=== PATIENT | male | born 2000 | race American Indian/Alaskan Native ===

== ENCOUNTER 2020-09-09 14:54 | Emergency (ER) | payer OTHER ==
--- NOTE | 2020-09-09 19:09 | Emergency Department Report ---
Chief Complaint: Urogenital-Male Stated Complaint: GROIN PAIN - HPI History of Present Illness: 20-year-old -Cong[place] male presents to the emergency room for penile discharge x2 months. Patient comes in wanting to get checked for STD. Patient denies any nausea vomiting no chest pain no dysuria no testicular pain no abdominal pain. - Exam Physical Exam: Patient is alert and oriented x3 no acute distress nontoxic in appearance No respiratory distress and Ambulatory without difficulties MSE screening note: Focused history and physical exam performed. Due to findings the following was ordered: 20-year-old -Congol[place] male presents to the emergency room for penile discharge x2 months. Patient comes in wanting to get checked for STD. Patient denies any nausea vomiting no chest pain no dysuria no testicular pain no abdominal pain. Patient is referred to [facility]. ED Disposition for MSE Disposition: MED SCREENING EXAM-LEFT Is pt being admited?: No Does the pt Need Aspirin: No Condition: Stable Additional Instructions: Follow up at health department. Referrals: PRIMARY CARE, [Primary Care Provider] - 3-5 Days [facility] [Outside] - 3-5 Days [facility] [place][Note 3] [Outside] - 3-5 Days
== END 2020-09-09 21:04 | disposition left against medical advice (07) ==
LOC: ED 14:54

== ENCOUNTER 2021-12-26 09:07 | Emergency (ER) | payer SELFPAY ==
[2021-12-26] MEDS ORDERED: SULFAMETHOXAZOLE/TRIMETHOPRIM 800/160MG DS TAB PO ONE (11:52)
[2021-12-26] MEDS ORDERED: KETOROLAC 10 MG TAB PO ONE (11:52)
[2021-12-26] MEDS ORDERED: oxyCODONE /ACETAMINOPHEN 5-325MG TAB PO ONE (11:52)
--- NOTE | 2021-12-26 11:56 | Emergency Department Report ---
- General Chief complaint: Skin/Abscess/Foreign Body Stated complaint: CYST/RT SIDE BUTTOCK Time Seen by Provider: 12/26/21 11:39 Source: patient Mode of arrival: Ambulatory Limitations: No Limitations - History of Present Illness Initial comments: 21-year-old black male with no past medical history presents to the emergency department for evaluation of several day history of worsening pain and swelling to right buttocks. He states that he had a minimal amount of drainage from area when he attempted to squeeze it. He denies fever, abdominal pain, nausea, and vomiting. He states that pain is 8 out of 10 and persistent MD complaint: abscess/boil -: Gradual, days(s) (4-5) Location: buttocks (Right) Severity: severe Severity scale (0 -10): 8 Quality: burning, aching Consistency: constant Worsens with: palpation Associated symptoms: denies other symptoms Treatments Prior to Arrival: none - Related Data Previous Rx's Medication Instructions Recorded Last Taken Type Triamcinolone 0.5% [Kenalog 0.5% 1 applic TP TID #1 tube 01/28/19 Unknown Rx CREAM] Acetaminophen/Codeine [Tylenol 1 tab PO Q6H PRN #12 tab 12/26/21 Unknown Rx /Codeine # 3 tab] Naproxen [EC-Naprosyn] 500 mg PO BID #14 tab 12/26/21 Unknown Rx Sulfamethoxazole/Trimethoprim 1 each PO BID 7 Days #14 tab 12/26/21 Unknown Rx [Bactrim DS TAB] Allergies Allergy/AdvReac Type Severity Reaction Status Date / Time No Known Allergies Allergy Unverified 12/26/21 10:11 Abscess Boil HPI - HPI Chief Complaint: Skin/Abscess/Foreign Body Stated Complaint: CYST/RT SIDE BUTTOCK Time Seen by Provider: 12/26/21 11:39 Severity: Severe History: Yes Pain, Yes Purulent Drainage, No Fever, No Numbness, No Foreign Body, No Previous History, No Insect Bite Home Medications: Previous Rx's Medication Instructions Recorded Last Taken Type Triamcinolone 0.5% [Kenalog 0.5% 1 applic TP TID #1 tube 01/28/19 Unknown Rx CREAM] Acetaminophen/Codeine [Tylenol 1 tab PO Q6H PRN #12 tab 12/26/21 Unknown Rx /Codeine # 3 tab] Naproxen [EC-Naprosyn] 500 mg PO BID #14 tab 12/26/21 Unknown Rx Sulfamethoxazole/Trimethoprim 1 each PO BID 7 Days #14 tab 12/26/21 Unknown Rx [Bactrim DS TAB] Allergies/Adverse Reactions: Allergies Allergy/AdvReac Type Severity Reaction Status Date / Time No Known Allergies Allergy Unverified 12/26/21 10:11 ED Review of Systems ROS: Stated complaint: CYST/RT SIDE BUTTOCK Other details as noted in HPI ED Past Medical Hx - Past Medical History Previous Medical History?: No - Surgical History Past Surgical History?: No - Social History Smoking Status: Current Every Day Smoker Substance Use Type: Alcohol - Medications Home Medications: Home Medications Medication Instructions Recorded Confirmed Last Taken Type Triamcinolone 0.5% [Kenalog 0.5% 1 applic TP TID #1 tube 01/28/19 Unknown Rx CREAM] Acetaminophen/Codeine [Tylenol 1 tab PO Q6H PRN #12 tab 12/26/21 Unknown Rx /Codeine # 3 tab] Naproxen [EC-Naprosyn] 500 mg PO BID #14 tab 12/26/21 Unknown Rx Sulfamethoxazole/Trimethoprim 1 each PO BID 7 Days #14 tab 12/26/21 Unknown Rx [Bactrim DS TAB] ED Physical Exam - General Limitations: No Limitations General appearance: alert, in no apparent distress - Head Head exam: Present: atraumatic, normocephalic - Eye Eye exam: Present: normal appearance. Absent: conjunctival injection, periorbital swelling, periorbital tenderness - Neck Neck exam: Present: normal inspection. Absent: lymphadenopathy - Respiratory Respiratory exam: Absent: respiratory distress - Cardiovascular Cardiovascular Exam: Present: regular rate - GI/Abdominal GI/Abdominal exam: Absent: distended, tenderness - External exam: Present: erythema, swelling, other - Extremities Exam Extremities exam: Present: normal inspection - Back Exam Back exam: Present: normal inspection. Absent: CVA tenderness (R) - Neurological Exam Neurological exam: Present: alert, oriented X3, normal gait - Psychiatric Psychiatric exam: Present: normal affect, normal mood - Skin Skin exam: Present: warm, dry, normal color - Expanded Skin Exam Expanded 1 - Abscessed area 3 cm in diameter noted. No purulent drainage noted but area noted to be tender, firm, and mildly erythematous. ED Course Vital Signs 12/26/21 12/26/21 12/26/21 10:08 12:15 12:17 Temperature 98.5 F Pulse Rate 72 73 Respiratory 18 18 Rate Blood Pressure 124/64 131/68 [Left] O2 Sat by Pulse 99 99 99 Oximetry ED Medical Decision Making - Medical Decision Making 21-year-old black male with no past medical history presents to the emergency department for evaluation of several day history of worsening pain and swelling to right buttocks. He states that he had a minimal amount of drainage from area when he attempted to squeeze it. He denies fever, abdominal pain, nausea, and vomiting. He states that pain is 8 out of 10 and persistent Physical exam consistent with abscess to right buttocks. Patient be discharged home with Bactrim, naproxen, and Tylenol 3 to use as directed. He is advised to follow-up with his primary care provider if no improvement or worsening symptoms or return to the emergency department as needed. He verbalizes understanding of and agreement with plan of care. Critical care attestation.: If time is entered above; I have spent that time in minutes in the direct care of this critically ill patient, excluding procedure time. ED Disposition Clinical Impression: Abscess of right buttock Disposition: 01 HOME / SELF CARE / HOMELESS Is pt being admited?: No Does the pt Need Aspirin: No Condition: Stable Instructions: Skin Abscess, [id number] Additional Instructions: Take medications as prescribed. Follow-up with your primary care provider if no improvement or worsening symptoms. Return to the emergency department as needed. Prescriptions: Sulfamethoxazole/Trimethoprim [Bactrim DS TAB] 1 each PO BID 7 Days #14 tab Naproxen [EC-Naprosyn] 500 mg PO BID #14 tab Acetaminophen/Codeine [Tylenol /Codeine # 3 tab] 1 tab PO Q6H PRN #12 tab PRN Reason: Pain , Severe (7-10) Referrals: FRANCHESKA FULLER MD [Primary Care Provider] - 3-5 Days Forms: Work/School Release Form(ED) Time of Disposition: 11:56
[2021-12-26 12:18] VITALS: BP 131/68
== END 2021-12-26 12:17 | disposition home or self-care (01) ==
LOC: ED 09:07
DX: L02.31 Cutaneous abscess of buttock (principal); F17.200 Nicotine dependence, unspecified, uncomplicated; Z79.899 Other long term (current) drug therapy; Z72.89 Other problems related to lifestyle
CPT/HCPCS: 99282